=== PATIENT | male | born 1955 | race Caucasian/White ===

== ENCOUNTER 2024-08-08 13:39 | Observation (INO) ==
--- NOTE | 2024-08-08 13:59 | CT Scan Report ---
CT SCAN OF THE BRAIN WITHOUT IV CONTRAST CLINICAL HISTORY: Neuro deficit. Stroke suspected. Right-sided weakness. COMPARISON STUDY: None. TECHNIQUE: Unenhanced axial CT scan of the brain was performed from the vertex to the skull base. A dose lowering technique was utilized adhering to the principles of ALARA. CT DOSE: 627.46 mGy.cm FINDINGS: Brain parenchyma: No acute intracranial hemorrhage, midline shift or mass effect is present. Kurtz-whi te matter differentiation is preserved. There are no extra-axial fluid collections. There are no find ings to suggest acute dural sinus thrombosis or acute territorial infarct. Ventricles, sulci, cisterns: There is no hydrocephalus. The basal cisterns are patent. Calvarium: Unremarkable. Sinuses and mastoids: Mild ethmoid sinus mucosal thickening is present. The mastoid air cells are wel l pneumatized. Orbits: The bony orbits are grossly intact. IMPRESSION: No acute intracranial findings. ACT 112: Negative or not required by law. Electronically signed by: Delfino Dow M.D. 08/08/2024 1:57 PM
--- NOTE | 2024-08-08 14:02 | Emergency Department Note ---
Impression & Plan Stroke-like symptoms ED Provider Note Diagnosis: Right-sided decree sensation Disposition: Admission CHIEF COMPLAINT: Right-sided numbness HPI: Patient is a 68-year-old male presenting with complaint right-sided numbness. Patient states symptoms started acutely at 10 AM this morning. Patient's who is bedside states that en route to the hospital she noticed that his speech was slurred but it is improved currently. Patient does not have any facial droop. Patient does not have any muscle strength deficits. Patient states he feels a numbness to the right side of his face arm and leg. Patient states he has been having episodes like this multiple times over the past 1 to 2 weeks time but they have only lasted a couple minutes this lasted much longer than previous episodes. PAST MEDICAL HISTORY: See Below PAST SURGICAL HISTORY: See Below SOCIAL HISTORY: See Below HOME MEDICATIONS: See Below ALLERGIES: See Below VITALS: See Below PHYSICAL EXAMINATION: GENERAL: Well appearing, well nourished, NAD, non-toxic. EYE EXAM: Normal conjunctiva. OROPHARYNX: Moist mucus membranes. Grossly normal dentition. NECK: Supple, LUNGS: Clear to auscultation. Normal chest wall mechanics. HEART: NSR ABDOMEN: Abdomen soft, non-tender, normo-active bowel sounds, no masses, no rebound or guarding BACK: No CVA TTP. SKIN: No rashes and no bruising. UPPER EXTREMITIES: Upper extremities are grossly normal LOWER EXTREMITIES: Grossly normal, no edema. NEURO EXAM: A&O x3,, normal speech, no facial droop, muscle strength of the upper and lower extremities 5 out of 5 bilaterally. Patient has intact sensation of the upper and lower extremities bilaterally PSYCH: Cooperative MEDICAL DECISION MAKING: History obtained from: Patient ER Course: Patient 68-year-old male presenting with complaint of right-sided numbness. Patient states he has been having intermittent episodes over the past 1 to 2 weeks time that last for couple minutes time and goes completely away on its own. Patient states at 10 AM this morning he started to feel symptoms and they persisted this time. Patient's who was with him en route to the hospital states that he had slurred speech that now is resolved. Patient on exam is no facial droop normal speech at this time. Patient has equal sensation for me of face arms and legs. Patient does feel subjectively that the right side is having some numbness present. Patient has no muscle strength deficits. Patient was within the 4 and half hour window and had stroke protocol ordered and was seen by neurology on the computer program. No TNK was recommended. Patient recommended to have load of aspirin Plavix and statin. Patient to have a EEG performed if he develops symptoms again. Admission for normal stroke workup with MRI and echo. Patient's case discussed with hospitalist service who agrees to accept in further treatment and evaluation Labs (independently interpreted) are significant for: No significant electrolyte abnormalities EKG interpretation (independently interpreted): Normal sinus rhythm no ST segment elevation or depression Medications given: Plavix, aspirin Consultants: Teleneurology, hospitalist Discussion with teleneurology team recommended giving 5 of labetalol due to diastolic being above 110, saw patient on camera recommends no TNK. No large vessel occlusions present. 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 Neurology recommends outpatient follow-up for this no need for emergent workup. Recommends EEG stat if patient develops any further symptoms. Triage Nursing notes reviewed and agree them. Vital Signs: reviewed and remarkable for: Hypertension Past Med/Surg History Problem List (Updated 08/08/24 @ 17:39 by Miguel Angel Barillas DO) Stroke-like symptoms (Acute) Gastroesophageal reflux Dyslipidemia Type II diabetes mellitus Hypertension Alcoholic peripheral neuropathy Medical History (Updated 08/08/24 @ 17:39 by Miguel Angel Barillas DO) Osteoarthritis Benign neoplasm of colon Social History Smoking Status: Never smoker Feels Safe at Home: Yes Allergies Allergies Allergy/AdvReac Type Severity Reaction Status Date / Time No Known Drug Allergies Allergy ` Verified 09/25/11 14:47 Home Meds Home Medications Medication Instructions Recorded Confirmed Advil 400 mg PO DIRECTED PRN 09/25/11 08/08/24 pain/fever #0 tabs Aspir-81 81 mg PO UD 08/08/24 08/08/24 duloxetine 60 mg capsule,delayed 60 mg PO UD 08/08/24 08/08/24 release famotidine 40 mg tablet 40 mg PO DAILY 08/08/24 08/08/24 gabapentin 400 mg capsule 400 mg PO TID 08/08/24 08/08/24 lisinopril 10 mg tablet 10 mg PO DAILY 08/08/24 08/08/24 metformin 500 mg tablet,extended 500 mg PO BID 08/08/24 08/08/24 release 24 hr nortriptyline 10 mg capsule 10 mg PO DAILY 08/08/24 08/08/24 sildenafil 100 mg tablet 100 mg PO DIRECTED PRN Sexual 08/08/24 08/08/24 Activity Results & Data (ED) Vital Signs Vital Signs - 24 hr 08/08/24 13:41 08/08/24 13:58 08/08/24 13:59 Temperature 36.9 C Temperature Source Temporal Artery Scan Pulse Rate 69 64 Pulse Rate [Apical] Pulse Rate from SpO2 Sensor Respiratory Rate 20 Respiratory Effort / Characteristics Non-Labored Spontaneous Respiratory Depth Normal Blood Pressure 215/126 H 213/119 H Blood Pressure [Left Arm] Blood Pressure Mean 155 161 Blood Pressure Mean [Left Arm] Pulse Oximetry 98 Oxygen Delivery Method Room Air Sepsis Recent Fever Within 48 Hours No Sepsis New/Unexplained Change in Mental Status N/A Sepsis Action Taken by Nursing No Action Required 08/08/24 14:00 08/08/24 14:00 08/08/24 14:06 Temperature Temperature Source Pulse Rate 61 62 Pulse Rate [Apical] Pulse Rate from SpO2 Sensor Respiratory Rate 17 18 Respiratory Effort / Characteristics Respiratory Depth Blood Pressure 208/114 H Blood Pressure [Left Arm] Blood Pressure Mean 148 Blood Pressure Mean [Left Arm] Pulse Oximetry 97 Oxygen Delivery Method Sepsis Recent Fever Within 48 Hours Sepsis New/Unexplained Change in Mental Status Sepsis Action Taken by Nursing 08/08/24 14:07 08/08/24 14:10 08/08/24 14:16 Temperature Temperature Source Pulse Rate 63 63 Pulse Rate [Apical] Pulse Rate from SpO2 Sensor Respiratory Rate Respiratory Effort / Characteristics Respiratory Depth Blood Pressure 203/110 H Blood Pressure [Left Arm] Blood Pressure Mean Blood Pressure Mean [Left Arm] Pulse Oximetry 97 Oxygen Delivery Method Room Air Room Air Sepsis Recent Fever Within 48 Hours Sepsis New/Unexplained Change in Mental Status Sepsis Action Taken by Nursing 08/08/24 14:16 08/08/24 14:33 08/08/24 14:35 Temperature Temperature Source Pulse Rate 65 Pulse Rate [Apical] Pulse Rate from SpO2 Sensor 65 Respiratory Rate 15 Respiratory Effort / Characteristics Respiratory Depth Blood Pressure 203/110 H 166/114 H Blood Pressure [Left Arm] Blood Pressure Mean 135 133 Blood Pressure Mean [Left Arm] Pulse Oximetry 97 Oxygen Delivery Method Sepsis Recent Fever Within 48 Hours Sepsis New/Unexplained Change in Mental Status Sepsis Action Taken by Nursing 08/08/24 14:36 08/08/24 14:54 08/08/24 15:09 Temperature Temperature Source Pulse Rate 71 57 L 60 Pulse Rate [Apical] Pulse Rate from SpO2 Sensor 58 L 60 Respiratory Rate 14 21 Respiratory Effort / Characteristics Respiratory Depth Blood Pressure 166/114 H Blood Pressure [Left Arm] Blood Pressure Mean Blood Pressure Mean [Left Arm] Pulse Oximetry 96 97 Oxygen Delivery Method Sepsis Recent Fever Within 48 Hours Sepsis New/Unexplained Change in Mental Status Sepsis Action Taken by Nursing 08/08/24 15:10 08/08/24 15:11 08/08/24 15:30 Temperature Temperature Source Pulse Rate Pulse Rate [Apical] 104 H Pulse Rate from SpO2 Sensor Respiratory Rate 18 Respiratory Effort / Characteristics Respiratory Depth Blood Pressure 167/102 H 172/105 H Blood Pressure [Left Arm] 167/102 H Blood Pressure Mean 108 129 Blood Pressure Mean [Left Arm] 123 Pulse Oximetry 94 Oxygen Delivery Method Sepsis Recent Fever Within 48 Hours Sepsis New/Unexplained Change in Mental Status Sepsis Action Taken by Nursing 08/08/24 15:45 08/08/24 15:51 08/08/24 16:00 Temperature Temperature Source Pulse Rate 59 L 62 Pulse Rate [Apical] Pulse Rate from SpO2 Sensor 59 L 62 Respiratory Rate 21 17 Respiratory Effort / Characteristics Respiratory Depth Blood Pressure 185/108 H Blood Pressure [Left Arm] Blood Pressure Mean 136 Blood Pressure Mean [Left Arm] Pulse Oximetry 96 98 Oxygen Delivery Method Sepsis Recent Fever Within 48 Hours Sepsis New/Unexplained Change in Mental Status Sepsis Action Taken by Nursing 08/08/24 16:00 08/08/24 16:03 08/08/24 16:21 Temperature Temperature Source Pulse Rate 60 59 L Pulse Rate [Apical] Pulse Rate from SpO2 Sensor 58 L 58 L Respiratory Rate 15 15 Respiratory Effort / Characteristics Respiratory Depth Blood Pressure 185/108 H Blood Pressure [Left Arm] Blood Pressure Mean 136 Blood Pressure Mean [Left Arm] Pulse Oximetry 97 98 Oxygen Delivery Method Sepsis Recent Fever Within 48 Hours Sepsis New/Unexplained Change in Mental Status Sepsis Action Taken by Nursing 08/08/24 16:30 08/08/24 16:30 08/08/24 16:44 Temperature Temperature Source Pulse Rate 57 L Pulse Rate [Apical] Pulse Rate from SpO2 Sensor Respiratory Rate Respiratory Effort / Characteristics Respiratory Depth Blood Pressure 169/120 H 169/120 H Blood Pressure [Left Arm] Blood Pressure Mean 136 136 Blood Pressure Mean [Left Arm] Pulse Oximetry Oxygen Delivery Method Sepsis Recent Fever Within 48 Hours Sepsis New/Unexplained Change in Mental Status Sepsis Action Taken by Nursing 08/08/24 16:55 Temperature Temperature Source Pulse Rate Pulse Rate [Apical] 64 Pulse Rate from SpO2 Sensor Respiratory Rate 18 Respiratory Effort / Characteristics Respiratory Depth Blood Pressure Blood Pressure [Left Arm] 165/105 H Blood Pressure Mean Blood Pressure Mean [Left Arm] 125 Pulse Oximetry 98 Oxygen Delivery Method Sepsis Recent Fever Within 48 Hours Sepsis New/Unexplained Change in Mental Status Sepsis Action Taken by Nursing Laboratory Data 08/08/24 14:10 08/08/24 14:10 Lab Results 08/08/24 08/08/24 08/08/24 Range/Units 14:07 14:07 14:10 WBC 6.52 (4.8-10.8) K/ul RBC 4.38 L (4.70-6.10) M/uL Hgb 15.0 (14.0-18.0) g/dl POC Hgb (14.0-18.0) g/dl Hct 41.7 L (42.0-52.0) % POC Hct (42-52) % MCV 95.2 (80.0-100.0) fL MCH 34.2 H (25.0-34.0) pg MCHC 36.0 (32.0-36.0) g/dL RDW Std Deviation 43.5 (36.4-46.3) fL RDW Coeff of Luc 12.4 (11.5-14.5) % Plt Count 188 (130-400) K/uL MPV 9.7 (9.4-12.4) fL PT 10.6 (9.0-12.0) Seconds INR 1.0 (0.9-1.1) APTT 26 (21-31) Seconds PTT Ratio 1.0 POC Sodium (135-144) mmol/L Sodium 137 (136-145) mmol/L POC Potassium (3.3-5.0) mmol/L Potassium 4.5 (3.5-5.1) mmol/L POC Chloride (101-112) mmol/L Chloride 105 (98-107) mmol/L Carbon Dioxide 25 (21-32) mmol/L POC Total CO2 (24-31) mmol/L Anion Gap 7 (3-11) POC Anion Gap (16-25) mmol/L POC BUN (7-18) mg/dl BUN 16 (6-23) mg/dl Creatinine 1.10 (0.6-1.4) mg/dl POC Creatinine (0.6-1.3) mg/dl Est Cr Clr Drug Dosing 73.6 ml/min eGFR 73.58 BUN/Creatinine Ratio 14.5 (10-20) Glucose 121 H (70-99(Fasting)) mg/dl POC Glucose 63 L* 121 H (70-99) mg/dl POC Glucose (other) (70-99) mg/dl Calcium 9.1 (8.6-10.3) mg/dl POC Ioniz Calcium Jr (1.12-1.32) mmol/l Magnesium 1.8 (1.7-2.4) mg/dl Total Bilirubin 0.5 (0.2-1.0) mg/dl AST 26 (13-39) U/L ALT 25 (7-52) U/L Alkaline Phosphatase 48 (34-104) U/L Total Protein 7.3 (6.0-8.3) gm/dl Albumin 4.4 (3.4-5.0) gm/dl Globulin 2.9 (2.5-4.0) gm/dl Albumin/Globulin Ratio 1.5 (0.9-2) 08/08/24 Range/Units 14:15 WBC (4.8-10.8) K/ul RBC (4.70-6.10) M/uL Hgb (14.0-18.0) g/dl POC Hgb 14.3 (14.0-18.0) g/dl Hct (42.0-52.0) % POC Hct 42 (42-52) % MCV (80.0-100.0) fL MCH (25.0-34.0) pg MCHC (32.0-36.0) g/dL RDW Std Deviation (36.4-46.3) fL RDW Coeff of Luc (11.5-14.5) % Plt Count (130-400) K/uL MPV (9.4-12.4) fL PT (9.0-12.0) Seconds INR (0.9-1.1) APTT (21-31) Seconds PTT Ratio POC Sodium 139 (135-144) mmol/L Sodium (136-145) mmol/L POC Potassium 4.4 (3.3-5.0) mmol/L Potassium (3.5-5.1) mmol/L POC Chloride 105 (101-112) mmol/L Chloride (98-107) mmol/L Carbon Dioxide (21-32) mmol/L POC Total CO2 22 L (24-31) mmol/L Anion Gap (3-11) POC Anion Gap 17.0 (16-25) mmol/L POC BUN 15 (7-18) mg/dl BUN (6-23) mg/dl Creatinine (0.6-1.4) mg/dl POC Creatinine 1.2 (0.6-1.3) mg/dl Est Cr Clr Drug Dosing ml/min eGFR BUN/Creatinine Ratio (10-20) Glucose (70-99(Fasting)) mg/dl POC Glucose (70-99) mg/dl POC Glucose (other) 124 H (70-99) mg/dl Calcium (8.6-10.3) mg/dl POC Ioniz Calcium Jr 1.13 (1.12-1.32) mmol/l Magnesium (1.7-2.4) mg/dl Total Bilirubin (0.2-1.0) mg/dl AST (13-39) U/L ALT (7-52) U/L Alkaline Phosphatase (34-104) U/L Total Protein (6.0-8.3) gm/dl Albumin (3.4-5.0) gm/dl Globulin (2.5-4.0) gm/dl Albumin/Globulin Ratio (0.9-2) Administered Medications Hydralazine HCl (Hydralazine Hcl 20 Mg/Ml Vial) 10 mg IV Q6H PRN PRN Reason: Blood Pressure - High Stop: 09/07/24 16:38 Last Admin: 08/08/24 16:43 Dose: 10 mg Documented By: KELVIN Discontinued Medications Aspirin (Aspirin Chew 324 Mg) 324 mg PO NOW STA Stop: 08/08/24 14:32 Last Admin: 08/08/24 14:34 Dose: 324 mg Documented By: LEONIDASK Clopidogrel Bisulfate (Clopidogrel Bisulfate 300 Mg Tab) 300 mg PO NOW STA Stop: 08/08/24 14:32 Last Admin: 08/08/24 14:34 Dose: 300 mg Documented By: LISSETTE Ioversol (Optiray 320 125ml) 112 ml IV ONCE ONE Stop: 08/08/24 14:24 Last Admin: 08/08/24 14:24 Dose: 112 ml Documented By: MONTSE Labetalol HCl (Labetalol Hcl Iv 5 Mg/Ml 20ml) 5 mg IV NOW STA Stop: 08/08/24 14:11 Last Admin: 08/08/24 14:16 Dose: 5 mg Documented By: LISSETTE Labetalol HCl (Labetalol Hcl Iv 5 Mg/Ml 20ml) Confirm Administered Dose 5 mg IV .STK-MED ONE Stop: 08/08/24 14:12 Last Admin: 08/08/24 14:20 Dose: Not Given Documented By: LISSETTE Labetalol HCl (Labetalol Hcl Iv 5 Mg/Ml 20ml) 10 mg IV NOW ONE Stop: 08/08/24 16:18 Last Admin: 08/08/24 16:44 Dose: Not Given Documented By: KELVIN Imaging Data Radiologist's Impression: Chest X-Ray 08/08/24 00:00 XR chest 1V portable CLINICAL HISTORY: STROKE ALERT COMPARISON STUDY: 09/25/2011 FINDINGS: Heart size and pulmonary vasculature are normal. No consolidation or pleural effusion. No pneumothorax. IMPRESSION: No acute findings. ACT 112: Negative or not required by law. Electronically signed by: Kushal Pizano M.D. 08/08/2024 3:[address] 08/08/24 13:48 CT SCAN OF THE BRAIN WITHOUT IV CONTRAST CLINICAL HISTORY: Neuro deficit. Stroke suspected. Right-sided weakness. COMPARISON STUDY: None. TECHNIQUE: Unenhanced axial CT scan of the brain was performed from the vertex to the skull base. A dose lowering technique was utilized adhering to the principles of ALARA. CT DOSE: 627.46 mGy.cm FINDINGS: Brain parenchyma: No acute intracranial hemorrhage, midline shift or mass effect is present. Kurtz-white matter differentiation is preserved. There are no extra- axial fluid collections. There are no findings to suggest acute dural sinus thrombosis or acute territorial infarct. Ventricles, sulci, cisterns: There is no hydrocephalus. The basal cisterns are patent. Calvarium: Unremarkable. Sinuses and mastoids: Mild ethmoid sinus mucosal thickening is present. The mastoid air cells are well pneumatized. Orbits: The bony orbits are grossly intact. IMPRESSION: No acute intracranial findings. ACT 112: Negative or not required by law. Electronically signed by: Delfino Dow M.D. 08/08/2024 1:57 PM Head CTA 08/08/24 14:03 CT angio head w con CLINICAL HISTORY: 68 years-old Male with stroke alert. Acute stroke like symptoms COMPARISON STUDY: Head CT same day TECHNIQUE: Following the IV administration of 112 cc of Optiray, CT angiogram of the brain was performed from the skull base to the vertex. Images are reviewed in the axial, sagittal, and coronal planes. 3-D MIPS images are created and assessed. IV contrast was administered without complication. All measurements were obtained according to NASCET criteria. A dose lowering technique was utilized adhering to the principles of ALARA. CT DOSE: 506.62 mGy.cm FINDINGS: CT BRAIN: Dictated separately. 6 mm extra-axial calcification noted adjacent to the posterior aspect of the superior left cerebrum on image 211 series 3, possibly a small meningioma. Similar-appearing 6 mm calcification adjacent to left frontal lobe on image 189. CT ANGIOGRAM OF THE BRAIN: The imaged bilateral internal carotid arteries are patent with moderate atherosclerosis. There is a 3 mm saccular aneurysm noted involving the clinoid segment right ICA on image 82 series 3. The bilateral anterior and middle cerebral arteries are also patent. Prominent calcified plaque involves the V4 segments of the left vertebral artery is causing mild stenosis on the right and short segment high-grade stenosis on the left. Patent basilar artery. Multifocal high-grade stenosis noted within the right P1 and P2 segments of the posterior cerebral artery. Moderate multifocal stenoses noted throughout portions of the left posterior cerebral artery. Dural sinuses appear patent. IMPRESSION: 1. Areas of high-grade stenosis are noted within the left vertebral and right posterior cerebral arteries. 2. 3 mm saccular aneurysm involves the clinoid segment right ICA. ACT 112: Negative or not required by law. The above report was generated using voice recognition software. It may contain grammatical, syntax or spelling errors. Electronically signed by: Scott Pearson M.D. 08/08/2024 2:47 PM Neck CTA 08/08/24 14:03 CT ANGIOGRAPHY OF THE NECK WITH CONTRAST CLINICAL HISTORY: Stroke alert. COMPARISON STUDY: No previous studies for comparison. Technique: CT angiography of the carotid and vertebral arteries was obtained using Optiray and 3D reconstruction on an independent workstation. NASCET criteria was utilized. Automated exposure control was utilized for the study. A dose lowering technique was utilized adhering to the principles of ALARA. Findings: Visualized portions of the lung apices are unremarkable. There is no cervical lymphadenopathy. No cervical spine fractures are present. There is moderate plaque within the proximal right internal carotid artery without significant stenosis. There is also moderate plaque within the proximal left internal carotid artery which results in 40% narrowing. The proximal left internal carotid artery measures 2.5 mm in caliber and the mid left cervical internal carotid artery measures 3.8 mm in caliber. There is no dissection or aneurysm within the neck. Severe stenosis of the intracranial portion of the left vertebral artery due to calcified plaque is present. There is mild stenosis of the intracranial portion of the right vertebral artery. IMPRESSION: 1. Moderate atherosclerotic plaque within the proximal bilateral internal carotid arteries. 40% stenosis of the proximal left internal carotid artery. No significant stenosis of the right cervical internal carotid artery. 2. 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 ACT 112: Negative or not required by law. Electronically signed by: Delfino Dow M.D. 08/08/2024 2:45 PM Discharge Plan Visit Data Chief Complaint: TIA Symptoms Stated Complaint: RT SIDE GOING NUMB, WEAKNESS, SPEACH ED Provider: Miguel Angel Barillas Discharge Problem: Stroke-like symptoms Patient Disposition: Admitted As Inpatient Condition: Fair Discharge Instructions Interventions: ED Discharge Assessment Last Done: 08/08/24 17:37 Forms Stand Alone Forms: [facility] [employer] Prescriptions Prescriptions: No Action Advil 200 MG tablet 400 mg PO DIRECTED PRN (Reason: pain/fever) Qty: 0 Rx Instructions: 08/08- otc unable to verify famotidine 40 mg tablet 40 mg PO DAILY gabapentin 400 mg capsule 400 mg PO TID sildenafil 100 mg tablet 100 mg PO DIRECTED PRN (Reason: Sexual Activity) nortriptyline 10 mg capsule 10 mg PO DAILY Rx Instructions: filled 08/08 30 day supply #30 lisinopril 10 mg tablet 10 mg PO DAILY metformin 500 mg tablet extended release 24 hr 500 mg PO BID duloxetine 60 mg capsule,delayed release(DR/EC) 60 mg PO UD Rx Instructions: 60 mg po daily. 08/08- last filled 07/04 30 day supply #30 Aspir-81 81 MG ENTERIC COATED TAB 81 mg PO UD Rx Instructions: original: 81 mg po qam 08/08- otc unable to verify Referrals Referrals: Oesterling,Ben R., MD [Outside Practitioners] -
[2024-08-08] MEDS: LABETALOL HCL IV 5 MG/ML 20ML IV STA (14:16)
[2024-08-08] MEDS: LABETALOL HCL IV 5 MG/ML 20ML IV ONE ×2 (14:20→16:44)
[2024-08-08] MEDS: OPTIRAY 320 125ml IV ONE (14:24)
[2024-08-08 14:26] LABS: Hematocrit (blood only) 41.7 % (42.0-52.0); Hemoglobin 15.0 g/dl (14.0-18.0); Mean Corpuscular Hemoglobin 34.2 pg (25.0-34.0); Mean Corpuscular Volume 95.2 fL (80.0-100.0); Platelet Count 188 K/uL (130-400); RDW Standard Deviation 43.5 fL (36.4-46.3); Red Blood Count 4.38 M/uL (4.70-6.10); White Blood Count 6.52 K/ul (4.8-10.8)
[2024-08-08] MEDS: ASPIRIN CHEW 324 MG PO STA (14:34)
[2024-08-08] MEDS: CLOPIDOGREL BISULFATE 300 MG TAB PO STA (14:34)
[2024-08-08 14:46] LABS: Alanine Aminotransferase 25.0 U/L (7-52); Albumin Globulin Ratio 1.5 (0.9-2); Alkaline Phosphatase 48.0 U/L (34-104); Anion Gap 7.0 (3-11); Bilirubin,Total 0.5 mg/dl (0.2-1.0); Blood Urea Nitrogen 16.0 mg/dl (6-23); Calcium 9.1 mg/dl (8.6-10.3); Carbon Dioxide 25.0 mmol/L (21-32); Chloride 105.0 mmol/L (98-107); Creatinine Clr Calc Pharmacy 73.6 ml/min; Globulin 2.9 gm/dl (2.5-4.0); Glucose 121.0 mg/dl (70-99(Fasting)); Magnesium 1.8 mg/dl (1.7-2.4); Potassium 4.5 mmol/L (3.5-5.1); Sodium 137.0 mmol/L (136-145); Total Protein 7.3 gm/dl (6.0-8.3)
--- NOTE | 2024-08-08 14:47 | CT Scan Report ---
CT ANGIOGRAPHY OF THE NECK WITH CONTRAST CLINICAL HISTORY: Stroke alert. COMPARISON STUDY: No previous studies for comparison. Technique: CT angiography of the carotid and vertebral arteries was obtained using Optiray and 3D rec onstruction on an independent workstation. NASCET criteria was utilized. Automated exposure control was utilized for the study. A dose lowering technique was utilized adhering to the principles of ALA RA. Findings: Visualized portions of the lung apices are unremarkable. There is no cervical lymphadenopat hy. No cervical spine fractures are present. There is moderate plaque within the proximal right inter nal carotid artery without significant stenosis. There is also moderate plaque within the proximal le ft internal carotid artery which results in 40% narrowing. The proximal left internal carotid artery measures 2.5 mm in caliber and the mid left cervical internal carotid artery measures 3.8 mm in calib er. There is no dissection or aneurysm within the neck. Severe stenosis of the intracranial portion o f the left vertebral artery due to calcified plaque is present. There is mild stenosis of the intracr anial portion of the right vertebral artery. IMPRESSION: 1. Moderate atherosclerotic plaque within the proximal bilateral internal carotid arteries. 40% steno sis of the proximal left internal carotid artery. No significant stenosis of the right cervical inter nal carotid artery. 2. 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 ACT 112: Negative or not required by law. Electronically signed by: Delfino Dow M.D. 08/08/2024 2:45 PM
--- NOTE | 2024-08-08 14:48 | CT Scan Report ---
CT angio head w con CLINICAL HISTORY: 68 years-old Male with stroke alert. Acute stroke like symptoms COMPARISON STUDY: Head CT same day TECHNIQUE: Following the IV administration of 112 cc of Optiray, CT angiogram of the brain was perfor med from the skull base to the vertex. Images are reviewed in the axial, sagittal, and coronal planes . 3-D MIPS images are created and assessed. IV contrast was administered without complication. All me asurements were obtained according to NASCET criteria. A dose lowering technique was utilized adherin g to the principles of ALARA. CT DOSE: 506.62 mGy.cm FINDINGS: CT BRAIN: Dictated separately. 6 mm extra-axial calcification noted adjacent to the posterior aspect of the sup erior left cerebrum on image 211 series 3, possibly a small meningioma. Similar-appearing 6 mm calcif ication adjacent to left frontal lobe on image 189. CT ANGIOGRAM OF THE BRAIN: The imaged bilateral internal carotid arteries are patent with moderate atherosclerosis. There is a 3 mm saccular aneurysm noted involving the clinoid segment right ICA on image 82 series 3. The bilater al anterior and middle cerebral arteries are also patent. Prominent calcified plaque involves the V4 segments of the left vertebral artery is causing mild stenosis on the right and short segment high-gr bambi stenosis on the left. Patent basilar artery. Multifocal high-grade stenosis noted within the righ t P1 and P2 segments of the posterior cerebral artery. Moderate multifocal stenoses noted throughout portions of the left posterior cerebral artery. Dural sinuses appear patent. IMPRESSION: 1. Areas of high-grade stenosis are noted within the left vertebral and right posterior cerebral sara pauly. 2. 3 mm saccular aneurysm involves the clinoid segment right ICA. ACT 112: Negative or not required by law. The above report was generated using voice recognition software. It may contain grammatical, syntax o r spelling errors. Electronically signed by: Scott Pearson M.D. 08/08/2024 2:47 PM
[2024-08-08 14:53] LABS: INR 1.0 (0.9-1.1); Partial Thromboplastin Time 26 Seconds (21-31); Prothrombin Time 10.6 Seconds (9.0-12.0)
--- NOTE | 2024-08-08 15:04 | XRay Report ---
XR chest 1V portable CLINICAL HISTORY: STROKE ALERT COMPARISON STUDY: 09/25/2011 FINDINGS: Heart size and pulmonary vasculature are normal. No consolidation or pleural effusion. No p neumothorax. IMPRESSION: No acute findings. ACT 112: Negative or not required by law. Electronically signed by: Kushal Pizano M.D. 08/08/2024 3:02 PM
--- NOTE | 2024-08-08 15:58 | Electrocardiogram Report ---
Test Reason : Blood Pressure : */* mmHG Vent. Rate : 59 BPM Atrial Rate : 59 BPM P-R Int : 152 ms QRS Dur : 86 ms QT Int : 400 ms P-R-T Axes : -23 -2 -9 degrees QTcB Int : 396 ms Sinus bradycardia Cannot rule out Inferior infarct , age undetermined Abnormal ECG Confirmed by Kunal Sparrow ([id number]) on 08/08/2024 3:57:41 PM Referred By: REFERRED SELF Confirmed By: Kunal Sparrow
--- NOTE | 2024-08-08 17:06 | Communication Note ---
Date of Service: August 08, 2024 Attending addendum: The patient was seen and examined in emergency room in presence of the He has significant past medical history of diabetes with neuropathy, hypertension, anxiety and depression and also history of alcohol abuse apparently came to emergency room with right-sided numbness, heaviness and tingling that lasted more than the usual neuropathic symptoms that he gets occasionally He denies any visual symptoms with it but the mentions to have brief episode of dysarthria without any problem with swallowing He also mentions to have some weakness involving the right sided extremities Symptoms have been coming and going for the last few weeks and during examination he did not have any symptoms On examination Lying in bed without any acute distress Blood pressure was noted to be high at 165/105 Chest was clear to auscultate bilaterally HeartS1-S2, regular and no murmur Abdomenbenign Extremitiesno edema CNSalert, awake and oriented x 3 and no focal sensory or no motor deficit appreciated His admission labs, EKG and imaging studies so far reviewed The ER physician did talk to neurologist on-call and was advised to have an EEG but no other recommendations Likely has TIA and rule out stroke and will have full workup including MRI of the brain, echocardiogram and also EEG as advised Will get a neurology consult and continue aspirin for now Uncontrolled blood pressurewill continue lisinopril and give hydralazine as needed with systolic blood pressure more than 180 Other medical conditions remained stable and will be managed as above Agree with assessment and plan as outlined above by MIGUEL ANGEL Miller and take the full responsibility of care in the hospital Dr Jesusita Villanueva
--- NOTE | 2024-08-08 17:11 | History & Physical Report ---
Date of Service August 08, 2024 Assessment & Plan (1) Stroke-like symptoms: Plan: Patient is a 68 year old M with a past medical history of DM type II, dyslipidemia, HTN, OA, alcoholic neuropathy presenting with numbness to right side and slurred speech. H/O neuropathy mostly affected BLE and extending upwards, has been having these symptoms for months, comes and go, and self resolved. Yesterday, he went to PCP with concern neuropathy symptoms are worsening. This morning around 10am, he experienced numbness to right side of face, lips that extended distally to the feet on the right side only. By 1300, he called his to come to the hospital and had slurred speech en route here. Stroke-like symptoms #H/O Alcoholic peripheral neuropathy * Admit to PCU Tele for further work-up * CTA Head and Neck showing areas of high-grade stenosis within left vertebral and right posterior cerebral arteries and 3 mm saccular aneurysm involves the clinoid segment right ICA. * Neurology consult ordered for additional recs--> per Neuro 3 mm saccular aneurysm incidental finding and will need OP followup; no TNK needed, EEG recommend * EEG for suspected seizure activity in setting of persistent auro-ordered * Obtain MRI Brain wo contrast-ordered * Obtain Echo for rule out cardiovasc causes of stroke-like sx-ordered * A1C, lipids, cbc, bmp with AM labs * Aspirin given in ED--> will begin daily aspirin tomorrow; patient non compliant with regimen at home * Plavix given in ED * H/O alcoholic neuropathy- consider starting thiamine and folic acid #Hypertensive urgency * BP extremely elevated upon arrival- 200's/110's and given Labetol 5mg--> additional 10 mg labetolol given in ED for BP 185/108 * Continue home lisinopril * PRN hydralazine #Dyslipidemia * H/O dyslipidemia OP without statin therapy * Start mod intensity statin inpatient now * Lipids with AM labs #DM Type II without insulin * Hold home metformin * SSI while inpatient * Accucheck ACHS * A1C with Am labs DVT Ppx: Teds; on aspirin Code status: Full PCP: Dr. Rangel Massey Dispo: Admit to PCU for tele monitoring and further workup Patient seen in collaboration with Dr. Villanueva. Please see addendum.I spent a total of 70 minutes coordinating, documenting and providing care for this patient excluding time spent in the performance of separately billed services or time spent by another provider/QHP. (2) Alcoholic peripheral neuropathy: (3) Hypertensive urgency: (4) Dyslipidemia: (5) Type II diabetes mellitus: History of Present Illness Primary Care Provider: Rangel Massey DO Patient is a 68 year old M with a past medical history of DM type II, dyslipidemia, HTN, OA, alcoholic neuropathy presenting with numbness to right side and slurred speech. H/O neuropathy mostly affected BLE and extending upwards, has been having these symptoms for months, comes and go, and self resolved. Yesterday, he went to PCP with concern neuropathy symptoms are worsening. This morning around 10am, he experienced numbness to right side of face, lips that extended distally to the feet on the right side only. By 1300, he called his to come to the hospital and had slurred speech en route here. Denies fever, chills, weight loss, weakness, headache, vision/hearing changes, chest pain, SOB, swelling, difficulty breathing, urinary concerns, N/V/D, joint swelling/pain, ambulation difficulty, skin rashes, lesions, bleeding, bruising. In the emergency department, patient was hypertensive with BP 200's/126's on admission to ED. Labetolol given. Reportedly, he took home lisinopril this morning. Labs stable with no signs of infection. EKG showing sinus meir. with vent rate 59 bpm, QTc 396. Electrolytes stable. Mag 1.8. Head CT showing No acute intracranial findings. Head CTA showing areas of high-grade stenosis are noted within the left vertebral and right posterior cerebral arteries and 3 mm saccular aneurysm involves the clinoid segment right ICA. Neck CTA showing moderate atherosclerotic plaque within the proximal bilateral internal carotid arteries. 40% stenosis of the proximal left internal carotid artery; No significant stenosis of the right cervical internal carotid artery; Severe stenosis of the intracranial portion of the left vertebral artery. Chest Xray negative. Aspirin and Plavix initiated. Patient not compliant with aspirin at home. As per external chart review, Echo 2018 showing LVEF 60-65% without significant valvular disease. History obtained primarily from the patient and via hospitalization record. The patient's family was at the bedside and assisted with history of illness. External chart review obtained from [facility]. Allergies Allergy/AdvReac Type Severity Reaction Status Date / Time No Known Drug Allergies Allergy ` Verified 09/25/11 14:47 Home Medications Medication Instructions Recorded Confirmed Type Advil 400 mg PO DIRECTED PRN 09/25/11 08/08/24 History pain/fever #0 tabs Aspir-81 81 mg PO UD 08/08/24 08/08/24 History duloxetine 60 mg capsule,delayed 60 mg PO UD 08/08/24 08/08/24 History release famotidine 40 mg tablet 40 mg PO DAILY 08/08/24 08/08/24 History gabapentin 400 mg capsule 400 mg PO TID 08/08/24 08/08/24 History lisinopril 10 mg tablet 10 mg PO DAILY 08/08/24 08/08/24 History metformin 500 mg tablet,extended 500 mg PO BID 08/08/24 08/08/24 History release 24 hr nortriptyline 10 mg capsule 10 mg PO DAILY 08/08/24 08/08/24 History sildenafil 100 mg tablet 100 mg PO DIRECTED PRN Sexual 08/08/24 08/08/24 History Activity Past Med/Surg History Problem List (Updated 08/08/24 @ 21:15 by MIGUEL ANGEL Mike) Hypertensive urgency Stroke-like symptoms (Acute) Gastroesophageal reflux Dyslipidemia Type II diabetes mellitus Hypertension Alcoholic peripheral neuropathy Medical History (Updated 08/08/24 @ 21:15 by MIGUEL ANGEL Mike) Osteoarthritis Benign neoplasm of colon Social History Smoking Status: Never smoker Hx Alcohol Use: Yes Alcohol type: hard liquor Hx Substance Use: No Preferred Language: Hungarian Communication Ability: Effective Personal Investment Adviser Required: No Beliefs That Will Affect Care: None Current Living Situation: Spouse Other Information That Helps Us Care for You: No Feels Safe at Home: Yes Safety Concerns: Feels Safe At This Time Assistive Devices: Glasses Review of Systems Review of Systems: All systems reviewed & are unremarkable except as noted in HPI & below Physical Exam Physical Exam: VITALS: Reviewed. WEIGHT/BMI reviewed. GEN: Healthy appearing, well-developed, NAD. PSYCH: Good Judgment. AOx3. Normal memory, mood, and affect. HEENT -Head: NC/AT; -Eyes: PERRL, EOMI. No discharge or redn ess; -Ears: External ears are normal. Normal TMs. -Nose: Normal nares. -Mouth and throat: MMM. Normal gums, muc tawana, palate,. Good dentition. NECK: Supple, with no masses. CV: RRR, no m/r/g. LUNGS: CTAB, no w/r/c. ABD: Soft, NT/ND, NBS, no masses or organomegaly. : N/A SKIN: Warm, well perfused. No skin rashes or abnormal lesions. MSK: No deformities, Normal gait. EXT: No clubbing, cyanosis, or edema. NEURO: Ambulating with no limitations. Normal muscle strength and tone. No focal deficits. Senation intact B/L Results & Data Results & Data Vital Signs (Past 12 Hours) Vital Signs Temp Pulse Pulse Resp BP BP Pulse Ox 08/08/24 16:55 64 18 165/105 H 98 08/08/24 16:44 57 L 08/08/24 16:30 169/120 H 08/08/24 16:30 169/120 H 08/08/24 16:21 59 L 15 98 08/08/24 16:03 60 15 97 08/08/24 16:00 185/108 H 08/08/24 16:00 185/108 H 08/08/24 15:51 62 17 98 08/08/24 15:45 59 L 21 96 08/08/24 15:30 172/105 H 08/08/24 15:11 104 H 18 167/102 H 94 08/08/24 15:10 167/102 H 08/08/24 15:09 60 21 97 08/08/24 14:54 57 L 14 96 08/08/24 14:36 71 166/114 H 08/08/24 14:35 166/114 H 08/08/24 14:33 65 15 97 08/08/24 14:16 203/110 H 08/08/24 14:16 63 203/110 H 08/08/24 14:10 97 08/08/24 14:07 63 08/08/24 14:06 62 18 08/08/24 14:00 61 17 97 08/08/24 14:00 208/114 H 08/08/24 13:59 64 08/08/24 13:58 213/119 H 08/08/24 13:41 36.9 C 69 20 215/126 H 98 O2 Del Method 08/08/24 16:55 08/08/24 16:44 08/08/24 16:30 08/08/24 16:30 08/08/24 16:21 08/08/24 16:03 08/08/24 16:00 08/08/24 16:00 08/08/24 15:51 08/08/24 15:45 08/08/24 15:30 08/08/24 15:11 08/08/24 15:10 08/08/24 15:09 08/08/24 14:54 08/08/24 14:36 08/08/24 14:35 08/08/24 14:33 08/08/24 14:16 08/08/24 14:16 08/08/24 14:10 Room Air 08/08/24 14:07 Room Air 08/08/24 14:06 08/08/24 14:00 08/08/24 14:00 08/08/24 13:59 08/08/24 13:58 08/08/24 13:41 Room Air Laboratory Results Short CBC 08/08/24 Range/Units 14:10 WBC 6.52 (4.8-10.8) K/ul Hgb 15.0 (14.0-18.0) g/dl Hct 41.7 L (42.0-52.0) % Plt Count 188 (130-400) K/uL BMP 08/08/24 14:10 Sodium 137 Potassium 4.5 Chloride 105 Carbon Dioxide 25 BUN 16 Creatinine 1.10 Glucose 121 H Calcium 9.1 Liver Function 08/08/24 Range/Units 14:10 Total Bilirubin 0.5 (0.2-1.0) mg/dl AST 26 (13-39) U/L ALT 25 (7-52) U/L Alkaline Phosphatase 48 (34-104) U/L Albumin 4.4 (3.4-5.0) gm/dl Diagnostic Findings Chest X-Ray 08/08/24 00:00 XR chest 1V portable CLINICAL HISTORY: STROKE ALERT COMPARISON STUDY: 09/25/2011 FINDINGS: Heart size and pulmonary vasculature are normal. No consolidation or pleural effusion. No pneumothorax. IMPRESSION: No acute findings. ACT 112: Negative or not required by law. Electronically signed by: Kushal Pizano M.D. 08/08/2024 3:[address] 08/08/24 13:48 CT SCAN OF THE BRAIN WITHOUT IV CONTRAST CLINICAL HISTORY: Neuro deficit. Stroke suspected. Right-sided weakness. COMPARISON STUDY: None. TECHNIQUE: Unenhanced axial CT scan of the brain was performed from the vertex to the skull base. A dose lowering technique was utilized adhering to the principles of ALARA. CT DOSE: 627.46 mGy.cm FINDINGS: Brain parenchyma: No acute intracranial hemorrhage, midline shift or mass effect is present. Kurtz-white matter differentiation is preserved. There are no extra- axial fluid collections. There are no findings to suggest acute dural sinus thrombosis or acute territorial infarct. Ventricles, sulci, cisterns: There is no hydrocephalus. The basal cisterns are patent. Calvarium: Unremarkable. Sinuses and mastoids: Mild ethmoid sinus mucosal thickening is present. The mastoid air cells are well pneumatized. Orbits: The bony orbits are grossly intact. IMPRESSION: No acute intracranial findings. ACT 112: Negative or not required by law. Electronically signed by: Delfino Dow M.D. 08/08/2024 1:57 PM Head CTA 08/08/24 14:03 CT angio head w con CLINICAL HISTORY: 68 years-old Male with stroke alert. Acute stroke like symptoms COMPARISON STUDY: Head CT same day TECHNIQUE: Following the IV administration of 112 cc of Optiray, CT angiogram of the brain was performed from the skull base to the vertex. Images are reviewed in the axial, sagittal, and coronal planes. 3-D MIPS images are created and assessed. IV contrast was administered without complication. All measurements were obtained according to NASCET criteria. A dose lowering technique was utilized adhering to the principles of ALARA. CT DOSE: 506.62 mGy.cm FINDINGS: CT BRAIN: Dictated separately. 6 mm extra-axial calcification noted adjacent to the posterior aspect of the superior left cerebrum on image 211 series 3, possibly a small meningioma. Similar-appearing 6 mm calcification adjacent to left frontal lobe on image 189. CT ANGIOGRAM OF THE BRAIN: The imaged bilateral internal carotid arteries are patent with moderate atherosclerosis. There is a 3 mm saccular aneurysm noted involving the clinoid segment right ICA on image 82 series 3. The bilateral anterior and middle cerebral arteries are also patent. Prominent calcified plaque involves the V4 segments of the left vertebral artery is causing mild stenosis on the right and short segment high-grade stenosis on the left. Patent basilar artery. Multifocal high-grade stenosis noted within the right P1 and P2 segments of the posterior cerebral artery. Moderate multifocal stenoses noted throughout portions of the left posterior cerebral artery. Dural sinuses appear patent. IMPRESSION: 1. Areas of high-grade stenosis are noted within the left vertebral and right posterior cerebral arteries. 2. 3 mm saccular aneurysm involves the clinoid segment right ICA. ACT 112: Negative or not required by law. The above report was generated using voice recognition software. It may contain grammatical, syntax or spelling errors. Electronically signed by: Scott Pearson M.D. 08/08/2024 2:47 PM Neck CTA 08/08/24 14:03 CT ANGIOGRAPHY OF THE NECK WITH CONTRAST CLINICAL HISTORY: Stroke alert. COMPARISON STUDY: No previous studies for comparison. Technique: CT angiography of the carotid and vertebral arteries was obtained using Optiray and 3D reconstruction on an independent workstation. NASCET criteria was utilized. Automated exposure control was utilized for the study. A dose lowering technique was utilized adhering to the principles of ALARA. Findings: Visualized portions of the lung apices are unremarkable. There is no cervical lymphadenopathy. No cervical spine fractures are present. There is moderate plaque within the proximal right internal carotid artery without significant stenosis. There is also moderate plaque within the proximal left internal carotid artery which results in 40% narrowing. The proximal left internal carotid artery measures 2.5 mm in caliber and the mid left cervical internal carotid artery measures 3.8 mm in caliber. There is no dissection or aneurysm within the neck. Severe stenosis of the intracranial portion of the left vertebral artery due to calcified plaque is present. There is mild stenosis of the intracranial portion of the right vertebral artery. IMPRESSION: 1. Moderate atherosclerotic plaque within the proximal bilateral internal carotid arteries. 40% stenosis of the proximal left internal carotid artery. No significant stenosis of the right cervical internal carotid artery. 2. 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 ACT 112: Negative or not required by law. Electronically signed by: Delfino Dow M.D. 08/08/2024 2:45 PM Code Status & VTE Plan VTE Prophylaxis Plan VTE Prophylaxis will be ordered: Yes Supervising Physician Co-Signing Physician Notes Date of Service: August 08, 2024 Attending addendum: The patient was seen and examined in emergency room in presence of the He has significant past medical history of diabetes with neuropathy, hypertension, anxiety and depression and also history of alcohol abuse apparently came to emergency room with right-sided numbness, heaviness and tingling that lasted more than the usual neuropathic symptoms that he gets occasionally He denies any visual symptoms with it but the mentions to have brief episode of dysarthria without any problem with swallowing He also mentions to have some weakness involving the right sided extremities Symptoms have been coming and going for the last few weeks and during examination he did not have any symptoms On examination Lying in bed without any acute distress Blood pressure was noted to be high at 165/105 Chest was clear to auscultate bilaterally HeartS1-S2, regular and no murmur Abdomenbenign Extremitiesno edema CNSalert, awake and oriented x 3 and no focal sensory or no motor deficit appreciated His admission labs, EKG and imaging studies so far reviewed The ER physician did talk to neurologist on-call and was advised to have an EEG but no other recommendations Likely has TIA and rule out stroke and will have full workup including MRI of the brain, echocardiogram and also EEG as advised Will get a neurology consult and continue aspirin for now,Continue Dual antiplatelet for 90 days Uncontrolled blood pressurewill continue lisinopril and give hydralazine as needed with systolic blood pressure more than 180 Other medical conditions remained stable and will be managed as above Agree with assessment and plan as outlined above by MIGUEL ANGEL Miller and take the full responsibility of care in the hospital Dr Jesusita Villanueva
[2024-08-08] MEDS ORDERED: PHARMACIST DISCHARGE MED REC CONSULT PRN (17:53)
[2024-08-08] MEDS ORDERED: CARBOHYDRATES FOR HYPOGLYCEMIA PO PRN (17:53)
[2024-08-08] MEDS ORDERED: GLUCOSE 10 TAB/TUBE PO PRN (17:53)
[2024-08-08] MEDS ORDERED: DEXTROSE 50% 50 ML SYRINGE IV PRN (17:53)
[2024-08-08] MEDS ORDERED: MAGNESIUM HYDROXIDE SUSP 30 ML UDC PO PRN (17:53)
[2024-08-08] MEDS ORDERED: ONDANSETRON INJ 2 MG/ML 2 ML VIAL IV PRN (17:53)
[2024-08-08] MEDS ORDERED: POLYETHYLENE (MIRALAX) 17 GM PACK PO PRN (17:53)
[2024-08-08] MEDS ORDERED: GLUCAGON FOR INJ 1 MG VIAL SQ PRN (17:53)
[2024-08-08] MEDS ORDERED: ALUMINUM/MAGNESIUM SUSP 30 ML UDC PO PRN (17:53)
[2024-08-08] MEDS ORDERED: ACETAMINOPHEN 325 MG TAB PO PRN (17:53)
[2024-08-08] MEDS ORDERED: PHARMACY GLYCEMIC MGMT CONSULT PRN (17:53)
[2024-08-08] MEDS ORDERED: GLUCOSE 40% GEL 15 GM TUBE PO PRN (17:53)
[2024-08-08] MEDS: METOPROLOL TARTRATE 1 MG/ML VIAL IV STA (18:16)
[2024-08-08] MEDS: INSULIN ASPART PER UNIT CHARGE SC SCH (18:45)
[2024-08-08] MEDS: ATORVASTATIN 20 MG TAB PO SCH (18:46)
[2024-08-08] MEDS: GABAPENTIN 400 MG CAP PO SCH (20:35)
[2024-08-08 21:23] VITALS: RESP 18
--- NOTE | 2024-08-09 00:15 | Magnetic Resonance Report ---
Exam(s): MRI HEAD Without Contrast EXAM: MR Head Without Intravenous Contrast CLINICAL HISTORY: Reason for exam: TIA. TECHNIQUE: Magnetic resonance images of the head/brain without intravenous contrast in multiple planes. COMPARISON: CT scan dated 08/08/2024. FINDINGS: Brain: No acute intracranial hemorrhage or infarct. There are small foci of signal abnormality within the white matter.. Ventricles: There is prominence of ventricular system with deepening of the sulci consistent with cortical and central atrophy.. Sinuses: There is mucoperiosteal thickening in the ethmoid and maxillary sinuses.. Mastoid air cells: Unremarkable as visualized. No mastoid effusion. Orbits: Unremarkable as visualized. IMPRESSION: Atrophy. There are small foci of signal abnormality within the white matter which may be due to ischemia, gliosis or demyelinating process. Electronically signed by: Tevin Rodriguez MD 08/09/24 00:14 AM
[2024-08-09 06:08] LABS: Hematocrit (blood only) 40.0 % (42.0-52.0); Hemoglobin 14.4 g/dl (14.0-18.0); Immature Granulocytes # (auto) 0.02 K/uL (0.01-0.20); Immature Granulocytes % (auto) 0.3 %; Mean Corpuscular Hemoglobin 34.4 pg (25.0-34.0); Mean Corpuscular Volume 95.5 fL (80.0-100.0); Platelet Count 171 K/uL (130-400); RDW Standard Deviation 42.0 fL (36.4-46.3); Red Blood Count 4.19 M/uL (4.70-6.10); White Blood Count 6.56 K/ul (4.8-10.8)
[2024-08-09 07:18] LABS: Anion Gap 10.0 (3-11); Blood Urea Nitrogen 15.0 mg/dl (6-23); Calcium 9.0 mg/dl (8.6-10.3); Carbon Dioxide 23.0 mmol/L (21-32); Chloride 104.0 mmol/L (98-107); Cholesterol 177.0 mg/dl (0-200); Creatinine Clr Calc Pharmacy 77.2 ml/min; Glucose 135.0 mg/dl (70-99(Fasting)); HDL Cholesterol 39.0 mg/dl; Potassium 4.1 mmol/L (3.5-5.1); Sodium 137.0 mmol/L (136-145); Triglycerides 193.0 mg/dl (0-150)
[2024-08-09 08:09] LABS: Hemoglobin A1C 6.4 % (4.5-5.6)
[2024-08-09] MEDS: FAMOTIDINE 40 MG TABLET PO SCH (08:32)
[2024-08-09] MEDS: ASPIRIN 81 MG ECTAB PO SCH (08:32)
--- NOTE | 2024-08-09 13:04 | Pharmacy Report ---
Pharmacy Glycemic Short Note 2 - Date of Service August 09, 2024 - Glycemic Short BSG Results (Last 24 hours): 08/08/24 08/08/24 08/08/24 14:07 14:07 14:10 Glucose 121 H POC Glucose 63 L* 121 H POC Glucose (other) 08/08/24 08/08/24 08/08/24 14:15 18:05 20:33 Glucose POC Glucose 126 H 141 H POC Glucose (other) 124 H 08/09/24 08/09/24 08/09/24 05:33 07:12 11:12 Glucose 135 H POC Glucose 130 H 105 H POC Glucose (other) OUTPATIENT ANTIDIABETIC REGIMEN: * metformin 500 mg BID * A1c 6.4% 08/09/24 ASSESSMENT: * Admitted with stroke-like symptoms, MRI read "small foci of signal abnormality within the white matter which may be due to ischemia, gliosis or demyelinating process" * Initially hypoglycemic. Fasting 130 mg/dL this morning. Will continue with ordered novolog, hold basal for now. * Will loosen novolog parameters between weight stress 1 and 2. Loosen further if needed to avoid hypoglycemia. PLAN FOR INPATIENT GLYCEMIC CONTROL: * Hold outpatient oral diabetes medications * Basal insulin * hold * Bolus insulin * NovoLog per scale ACHS or Q6hrs while NPO * Goal Range: Low 110 mg/dL - High 140 mg/dL * Correction Factor: 30 mg/dL/unit * Nutritional / Prandial insulin per carb ratio of 1 unit per 12 grams CHO consumed
[2024-08-09] MEDS: CLOPIDOGREL BISULFATE 75 MG TAB PO SCH (13:41)
[2024-08-09 15:02] VITALS: BP 151/90; PULSE 63; TEMP 98.2; O2SAT 97
--- NOTE | 2024-08-09 15:05 | Neurology Consultation ---
Date of Consultation August 09, 2024 Assessment & Plan (1) Hypertensive urgency: Joey Shannon is a 68 yo M presenting with R sided numbness, negative workup with normal MRI but otherwise likely symptoms were secondary to TIA vs hypertensive urgency. Would treat as stroke/tia and continue dapt for 21 days and close PCP follow-up for risk factor reduction. He can follow with his PCP and neurology. Given the mild carotid stenosis would follow with at least yearly carotid ultrasound. -- DAPT for 21 days, then aspirin 81mg daily -- Agree with lipitor for LDL <70 -- Goal normotension with close PCP followup -- Neurology follow-up in 4-6 weeks (2) Stroke-like symptoms: Telehealth Consultation Telehealth Information Telehealth Information: I performed this visit using a real-time telehealth connection between my location and the patients location ([facility]). After connecting through interactive tele-video, patient was identified by name and date of and/or wristband check.Patient (or authorized healthcare customer support representative) was informed that this was a telemedicine visit and it was being conducted confidentially over secure lines. My office door was closed and no one else was present in the room with me.Patient (or authorized healthcare customer support representative) provided consent to proceed with the visit, expressed an understanding of privacy and security of the telemedicine visit, and gave permission to have a hospital customer support representative in the room in order to assist with the visit and to conduct portions of the visit, as needed. I informed the patient (or authorized healthcare customer support representative) that I reviewed their record and presented the opportunity for them to ask any questions regarding the visit today. The patient agreed to participate. History of Present Illness Reason for Consultation: R sided numbness Attending Physician: Chavez Lawson MD History of Present Illness Joey Shannon is a 68 yo M presenting with R sided numbness yesterday that has since resolved. He reports he has had similar symptoms over the past 3 weeks that seems to come and go but is not persistent. Yesterday he had trouble walking because of the numbness which affected face through his leg and his manual dexterity in his R hand. Never had symptoms on the L, no history of stroke, not on aspirin at home. Denies any change in speech, vision or headache. Allergies Allergy/AdvReac Type Severity Reaction Status Date / Time No Known Drug Allergies Allergy ` Verified 09/25/11 14:47 Home Medications Medication Instructions Recorded Confirmed Type Advil 400 mg PO DIRECTED PRN 09/25/11 08/08/24 History pain/fever #0 tabs Aspir-81 81 mg PO UD 08/08/24 08/08/24 History duloxetine 60 mg capsule,delayed 60 mg PO UD 08/08/24 08/08/24 History release famotidine 40 mg tablet 40 mg PO DAILY 08/08/24 08/08/24 History gabapentin 400 mg capsule 400 mg PO TID 08/08/24 08/08/24 History lisinopril 10 mg tablet 10 mg PO DAILY 08/08/24 08/08/24 History metformin 500 mg tablet,extended 500 mg PO BID 08/08/24 08/08/24 History release 24 hr nortriptyline 10 mg capsule 10 mg PO DAILY 08/08/24 08/08/24 History sildenafil 100 mg tablet 100 mg PO DIRECTED PRN Sexual 08/08/24 08/08/24 History Activity Patient History Medical History (Updated 08/08/24 @ 21:15 by MIGUEL ANGEL Mike) Osteoarthritis Benign neoplasm of colon Social History Smoking Status: Never smoker Hx Alcohol Use: Yes Alcohol type: hard liquor Hx Substance Use: No Preferred Language: Sinhala Communication Ability: Effective Chamber Magistrate Required: No Beliefs That Will Affect Care: None Current Living Situation: Spouse Feels Safe at Home: Yes Assistive Devices: Crutches Review of Systems +R sided numbness, resolved Physical Exam Neurological Examination: Mental Status: Awake and alert. Oriented to person, place, and time. Fluent. Comprehension intact. Affect appropriate. Cranial Nerves: II:pupils 3/3 to 2/2, hwang grossly intact. III/IV/: Versions intact without nystagmus, no gaze preference. V: Facial sensation symmetric to light touch VII: Facial expression symmetric VIII: Hearing intact to voice IX/X: Palate elevates symmetrically XI: Shoulder shrug symmetric XII: Tongue midline Motor: Strength was symmetric and antigravity throughout. Pronator drift was absent. There were no abnormal movements. Sensory: Sensation to light touch was intact. Reflexes: Unable to assess over telemedicine Results & Data Vital Signs (Past 12 Hours) Vital Signs Temp Pulse Pulse Resp BP Pulse Ox O2 Del Method 08/09/24 13:01 73 08/09/24 11:10 36.7 C 61 18 157/95 H 98 Room Air 08/09/24 07:12 36.7 C 55 L 18 166/96 H 97 Room Air 08/09/24 05:38 58 L 08/09/24 03:43 36.6 C 58 L 18 143/84 H 96 Room Air Laboratory Results Abnormal lab results 08/08/24 08/08/24 08/09/24 Range/Units 18:05 20:33 05:33 RBC 4.19 L (4.70-6.10) M/uL Hct 40.0 L (42.0-52.0) % MCH 34.4 H (25.0-34.0) pg Glucose 135 H (70-99(Fasting)) mg/dl POC Glucose 126 H 141 H (70-99) mg/dl Hemoglobin A1c 6.4 H (4.5-5.6) % Triglycerides 193 H (0-150) mg/dl VLDL Cholesterol, Calc 39 H (0-30) mg/dl 08/09/24 08/09/24 Range/Units 07:12 11:12 RBC (4.70-6.10) M/uL Hct (42.0-52.0) % MCH (25.0-34.0) pg Glucose (70-99(Fasting)) mg/dl POC Glucose 130 H 105 H (70-99) mg/dl Hemoglobin A1c (4.5-5.6) % Triglycerides (0-150) mg/dl VLDL Cholesterol, Calc (0-30) mg/dl Diagnostic Findings MRI brain unremarkable CTA with 40% stenosis bilaterally
[2024-08-09] MEDS ORDERED: STROKE PATIENT DISCHARGE STA (15:27)
--- NOTE | 2024-08-09 15:39 | Discharge Summary ---
Date of Service August 09, 2024 Admission HPI Per Admitting Provider Patient is a 68 year old M with a past medical history of DM type II, dyslipidemia, HTN, OA, alcoholic neuropathy presenting with numbness to right side and slurred speech. H/O neuropathy mostly affected BLE and extending upwards, has been having these symptoms for months, comes and go, and self resolved. Yesterday, he went to PCP with concern neuropathy symptoms are worsening. This morning around 10am, he experienced numbness to right side of face, lips that extended distally to the feet on the right side only. By 1300, he called his to come to the hospital and had slurred speech en route here. Denies fever, chills, weight loss, weakness, headache, vision/hearing changes, chest pain, SOB, swelling, difficulty breathing, urinary concerns, N/V/D, joint swelling/pain, ambulation difficulty, skin rashes, lesions, bleeding, bruising. In the emergency department, patient was hypertensive with BP 200's/126's on admission to ED. Labetolol given. Reportedly, he took home lisinopril this morning. Labs stable with no signs of infection. EKG showing sinus meir. with vent rate 59 bpm, QTc 396. Electrolytes stable. Mag 1.8. Head CT showing No acute intracranial findings. Head CTA showing areas of high-grade stenosis are noted within the left vertebral and right posterior cerebral arteries and 3 mm saccular aneurysm involves the clinoid segment right ICA. Neck CTA showing moderate atherosclerotic plaque within the proximal bilateral internal carotid arteries. 40% stenosis of the proximal left internal carotid artery; No significant stenosis of the right cervical internal carotid artery; Severe stenosis of the intracranial portion of the left vertebral artery. Chest Xray negative. Aspirin and Plavix initiated. Patient not compliant with aspirin at home. As per external chart review, Echo 2018 showing LVEF 60-65% without significant valvular disease. History obtained primarily from the patient and via hospitalization record. The patient's family was at the bedside and assisted with history of illness. External chart review obtained from [facility]. Admission Exam Per Admitting Provider WEIGHT/BMI reviewed. GEN: Healthy appearing, well-developed, NAD. PSYCH: Good Judgment. AOx3. Normal memory, mood, and affect. HEENT -Head: NC/AT; -Eyes: PERRL, EOMI. No discharge or redness; -Ears: External ears are normal. Normal TMs. -Nose: Normal nares. -Mouth and throat: MMM. Normal gums, mucosa, palate,. Good dentition. NECK: Supple, with no masses. CV: RRR, no m/r/g. LUNGS: CTAB, no w/r/c. ABD: Soft, NT/ND, NBS, no masses or organomegaly. : N/A SKIN: Warm, well perfused. No skin rashes or abnormal lesions. MSK: No deformities, Normal gait. EXT: No clubbing, cyanosis, or edema. NEURO: Ambulating with no limitations. Normal muscle strength and tone. No focal deficits. Senation intact B/L Principal Diagnosis TIA vs hypertensive urgency Discharge Exam GEN: WD/WN M in NAD HEENT: NC/AT, EOMI CV: RRR, no m/r/g. LUNGS: CTAB, no w/r/c. ABD: Soft, NT/ND, NBS SKIN: Warm, dry, well perfused MSK: moves extremities NEURO: awake, alert, oriented, answers appropriately, no dysarthria, no facial asymmetry, moves extremities. Discharge Data Allergies Allergy/AdvReac Type Severity Reaction Status Date / Time No Known Drug Allergies Allergy ` Verified 09/25/11 14:47 Consultations 08/08/24 15:28 ED Decision to Admit Stat 08/08/24 17:53 Consult Neurology Routine Ordered Studies 08/08/24 13:48 CT head/brain wo con Stat FINDINGS: Brain parenchyma: No acute intracranial hemorrhage, midline shift or mass effect is present. Kurtz-white matter differentiation is preserved. There are no extra- axial fluid collections. There are no findings to suggest acute dural sinus thrombosis or acute territorial infarct. Ventricles, sulci, cisterns: There is no hydrocephalus. The basal cisterns are patent. Calvarium: Unremarkable. Sinuses and mastoids: Mild ethmoid sinus mucosal thickening is present. The mastoid air cells are well pneumatized. Orbits: The bony orbits are grossly intact. IMPRESSION: No acute intracranial findings. 08/08/24 14:03 CT angio head w con Stat IMPRESSION: 1. Areas of high-grade stenosis are noted within the left vertebral and right posterior cerebral arteries. 2. 3 mm saccular aneurysm involves the clinoid segment right ICA. CT angio neck with con Stat IMPRESSION: 1. Moderate atherosclerotic plaque within the proximal bilateral internal carotid arteries. 40% stenosis of the proximal left internal carotid artery. No significant stenosis of the right cervical internal carotid artery. 2. 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 08/08/24 17:53 MR brain wo con Routine FINDINGS: Brain: No acute intracranial hemorrhage or infarct. There are small foci of signal abnormality within the white matter.. Ventricles: There is prominence of ventricular system with deepening of the sulci consistent with cortical and central atrophy.. Sinuses: There is mucoperiosteal thickening in the ethmoid and maxillary sinuses.. Mastoid air cells: Unremarkable as visualized. No mastoid effusion. Orbits: Unremarkable as visualized. IMPRESSION: Atrophy. There are small foci of signal abnormality within the white matter which may be due to ischemia, gliosis or demyelinating process. Hospital Course (1) Stroke-like symptoms: Patient is a 68 year old M with a past medical history of DM type II, dyslipidemia, HTN, OA, alcoholic neuropathy presenting with numbness to right side and slurred speech. H/O neuropathy mostly affected BLE and extending upwards, has been having these symptoms for months, comes and go, and self resolved. Yesterday, he went to PCP with concern neuropathy symptoms are worsening. This morning around 10am, he experienced numbness to right side of face, lips that extended distally to the feet on the right side only. By 1300, he called his to come to the hospital and had slurred speech en route here. Stroke-like symptoms TIA vs. Hypertensive urgency #H/O Alcoholic peripheral neuropathy * CTA Head and Neck showing areas of high-grade stenosis within left vertebral and right posterior cerebral arteries and 3 mm saccular aneurysm involves the clinoid segment right ICA. * Stroke Neurology consulted in ED for additional recs--> per Neuro 3 mm saccular aneurysm incidental finding and will need OP followup; no TNK needed, EEG recommend * EEG for suspected seizure activity in setting of persistent auro-ordered * MRI Brain - Atrophy. There are small foci of signal abnormality within the white matter which may be due to ischemia, gliosis or demyelinating process. * Echo obtained - EF 55-60%, no ASD, no interatrial shunt * A1C 6.4%, LDL 99 * Aspirin given in ED--> will begin daily aspirin tomorrow; patient non compliant with regimen at home * Plavix given in ED * H/O alcoholic neuropathy- consider starting thiamine and folic acid * Neurology consulted - Joey Shannon is a 68 yo M presenting with R sided numbness, negative workup wi th normal MRI but otherwise likely symptoms were secondary to TIA vs hypertensive urgency. Would treat as stroke/tia and continue dapt for 21 days and close PCP follow-up for risk factor reduction. He can follow with his PCP and neurology. Given the mild carotid stenosis would follow with at least yearly carotid ultrasound. -- DAPT for 21 days, then aspirin 81mg daily -- Agree with lipitor for LDL <70 -- Goal normotension with close PCP followup -- Neurology follow-up in 4-6 weeks - #Hypertensive urgency * BP extremely elevated upon arrival- 200's/110's and given Labetol 5mg--> additional 10 mg labetolol given in ED for BP 185/108 * Continue home lisinopril * PRN hydralazine * BP 151/90 - pt will need to follow up w/ PCP #Dyslipidemia * H/O dyslipidemia OP without statin therapy * Started atorvastatin * Lipids as above, LDL 99 #DM Type II without insulin * Hold home metformin while inpt -> resume on DC * SSI while inpatient * Accucheck ACHS * A1C 6.4% PCP: Dr. Rangel Massey (2) Alcoholic peripheral neuropathy: (3) Hypertensive urgency: (4) Dyslipidemia: (5) Type II diabetes mellitus: Total Time Total Time Spent Total Time Spent (In Minutes): 40 Discharge Plan Discharge Items Patient Disposition: Home - Self-Care Reason For Visit: TIA Discharge Diagnosis: TIA vs hypertensive urgency Condition on Discharge: Fair Activity: Per Instructions section Non-emergency contact: Primary Care Provider and Neurologist Call non-emergency contact if: you have any medication questions and your symptoms worsen Follow-up/Referrals: Rangel Massey DO [Primary Care Provider] - (Date & Time 08/16/2024 10:20 AM Provider: Herbert Eli CRNP [facility]) Diet: Carb Consistent or DM2 Addtl Attending Provider Instructions: Follow up with primary care physician and neurologist. Take aspirin 81 mg daily and plavix 75 mg daily for 20 days, then take only aspirin daily. Take atorvastatin as prescribed. Monitor your blood pressure and closely follow up with your primary care doctor. You should be seen by primary care physician within 1 week. You should follow up with neurologist in 4-6 weeks. Pending Studies at Discharge: No Stand-Alone Forms: [facility], Smoking Cessation Medications and DC Order Prescriptions: New clopidogrel 75 mg Tablet 75 mg PO QAM Qty: 20 0RF atorvastatin 80 mg tablet 80 mg PO DAILY Qty: 30 0RF Continued Advil 200 MG tablet 400 mg PO DIRECTED PRN (Reason: pain/fever) Qty: 0 Rx Instructions: 08/08- otc unable to verify famotidine 40 mg tablet 40 mg PO DAILY gabapentin 400 mg capsule 400 mg PO TID sildenafil 100 mg tablet 100 mg PO DIRECTED PRN (Reason: Sexual Activity) nortriptyline 10 mg capsule 10 mg PO DAILY Rx Instructions: filled 08/08 30 day supply #30 lisinopril 10 mg tablet 10 mg PO DAILY metformin 500 mg tablet extended release 24 hr 500 mg PO BID duloxetine 60 mg capsule,delayed release(DR/EC) 60 mg PO UD Rx Instructions: 60 mg po daily. 08/08- last filled 07/04 30 day supply #30 Changed Aspir-81 81 MG ENTERIC COATED TAB 81 mg PO DAILY Qty: 0 0RF Rx Instructions: original: 81 mg po qam 08/08- otc unable to verify Discharge Orders: Discharge Order (Routine); Ordered 08/09/24 Ordered By: Chavez Kerns/Other Patient Handouts: Managing Type 2 Diabetes Admission Data Admit Date/Time: 08/08/24 16:27 Attending Provider: Chavez Lawson Admit Provider: Adonis Villanueva Primary Care Provider: Rangel Massey Other Providers: Adonis Villanueva; Gregorio Ralph
[2024-08-10] MEDS ORDERED: ATORVASTATIN 40 MG TAB PO SCH (09:00)
[2024-08-10] MEDS ORDERED: ASPIRIN 325 MG ECTAB PO SCH (09:00)
--- NOTE | 2024-08-16 09:26 | Pharmacy Report ---
Pharmacist Stroke Counseling - Date of Service August 16, 2024 - Scope: Pharmacy has been consulted to provide medication discharge counseling for this patient admitted with possible transient ischemic attack as per the Pharmacist Discharge Counseling for Stroke Patients Protocol. - Medications on Discharge: Home Medications Medication Instructions Recorded Confirmed Advil 400 mg PO DIRECTED PRN 09/25/11 08/08/24 pain/fever #0 tabs duloxetine 60 mg capsule,delayed 60 mg PO UD 08/08/24 08/08/24 release famotidine 40 mg tablet 40 mg PO DAILY 08/08/24 08/08/24 gabapentin 400 mg capsule 400 mg PO TID 08/08/24 08/08/24 lisinopril 10 mg tablet 10 mg PO DAILY 08/08/24 08/08/24 metformin 500 mg tablet,extended 500 mg PO BID 08/08/24 08/08/24 release 24 hr nortriptyline 10 mg capsule 10 mg PO DAILY 08/08/24 08/08/24 sildenafil 100 mg tablet 100 mg PO DIRECTED PRN Sexual 08/08/24 08/08/24 Activity New Rx's Medication Instructions Recorded Aspir-81 81 mg PO DAILY ##0 08/09/24 atorvastatin 80 mg tablet 80 mg PO DAILY #30 tabs 08/09/24 clopidogrel 75 mg tablet 75 mg PO QAM #20 tabs 08/09/24 - Action: The above medications, specifically ones for stroke treatment/prophylaxis, have been reviewed in detail with the patient and/or patient pharmaceutical specialty representative(s) prior to discharge. This includes indication, common adverse reactions, drug interactions, and medication administration. Medication counseling has been employed using the teach-back method to ensure understanding. - Outcome: The patient and/or patient pharmaceutical specialty representative(s) have demonstrated understanding of the medications. Additional comments: Spoke with Mr. Shannon about new prescriptions. He has started plavix, aspirin, and atorvastatin. States he is aware of instructions to take aspirin + plavix x 20 days, then continue on aspirin alone. Reviewed importance of using as instructed and potential side effects, including when to contact his physician. He had no questions and did not express any additional concerns. Thank you for allowing pharmacy to be involved in the care of this patient. Please call [phone] with any additional questions
== END 2024-08-09 16:00 | disposition home or self-care (01) | DRG 69 ==
LOC: ED 13:39 → SUATTDRO 16:27 → 2E 16:27 → INTOOBSV 16:27 → 2E 17:37